=== PATIENT | female | born 1975 ===

== ENCOUNTER 2017-06-29 08:58 | Outpatient (CLI) | payer OTHER | END 2017-06-29 09:14 | disposition home or self-care (01) | LOC: SONOGRAMA 08:58 | DX: D25.0 Submucous leiomyoma of uterus (principal); D27.9 Benign neoplasm of unspecified ovary ==

== ENCOUNTER → 2017-07-07 | Outpatient (CLI) | payer OTHER | END | disposition home or self-care (01) | LOC: MAMO-SONO 13:58 → SONOGRAMA 14:15 | DX: Z12.31 Encounter for screening mammogram for malignant neoplasm of breast (principal); N60.11 Diffuse cystic mastopathy of right breast; N60.12 Diffuse cystic mastopathy of left breast ==